=== PATIENT | male | born 1965 | race Caucasian/White ===

== ENCOUNTER 2018-08-12 04:53 | Emergency (ER) | payer SELFPAY ==
--- NOTE | 2018-08-12 05:16 | ER Document Report ---
ED General - General TRAVEL OUTSIDE OF THE [place] IN LAST 30 DAYS: No <BETTY TAYLOR - Last Filed: 08/12/18 07:06> <RAN VAZQUEZ - Last Filed: 08/12/18 09:13> - General Chief Complaint: Abdominal Pain Stated Complaint: POSS FOOD POISONING/BLOOD PRESSURE ISSUES Time Seen by Provider: 08/12/18 05:07 Notes: Patient is a 52-year-old male that comes emergency department for chief co mplaint of pains in his upper abdomen in the middle and right upper abdomen that started around 1030 tonight, he states that he also had tingling sensations in his left arm, between the 2 he became concerned and came in for evaluation. He denies nausea, vomiting, difficulty breathing, fever/chills. He states that symptoms started shortly after he was eating at [facility] tonight. Past medical history includes type 2 diabetes, hypertension, hyperlipidemia. He denies smoking, recreational drugs, history of CO or CAD. (BETTY TAYLOR) - Related Data Allergies/Adverse Reactions: No Known Allergies Allergy (Unverified 08/12/18 04:58) Past Medical History - Social History Smoking Status: Unknown if Ever Smoked Family History: Reviewed & Not Pertinent <RAN VAZQUEZ - Last Filed: 08/12/18 09:13> - Vital signs Vitals: Temp Pulse Resp BP Pulse Ox 97.6 F 73 17 189/110 H 94 08/12/18 05:01 08/12/18 05:01 08/12/18 05:01 08/12/18 05:01 08/12/18 05:01 Course - Laboratory Result Diagrams: 08/12/18 05:37 08/12/18 05:37 <BETTY TAYLOR - Last Filed: 08/12/18 07:06> - Laboratory Result Diagrams: 08/12/18 05:37 08/12/18 05:37 <RAN VAZQUEZ - Last Filed: 08/12/18 09:13> - Re-evaluation Re-evalutation: Chest x-ray is unremarkable. EKG with no acute findings, patient asymptomatic on my initial evaluation. He is hypertensive but is otherwise well-appearing. He identifies his pain as specifically epigastric, he does have some epigastric tenderness along with some right upper quadrant tenderness which is minimal, however his examination does not show guarding or severe tenderness. He appears comfortable. No tachycardia, fever, hypotension. CBC does show some mild leukocytosis with elevation of neutrophils but no bandemia. Chemistry unremarkable except for mild hyperglycemia with no acidosis. Lipase is normal. Ultrasound was performed because of the patient's symptoms beginning with eating and because of the painful location, this was normal. Initial troponin is negative. Discussed with patient. On reevaluation patient states that he again felt the upper abdominal discomfort between my evaluations. He did not have nausea or vomiting, did not have chest pain. Because of his left arm tingling that occurred earlier, along with the epigastric pain, risk factors of age, hypertension, diabetes, I recommended a delta troponin despite his atypical symptoms. Also him giving patient Pepcid and Carafate for suspected upper gastrointestinal tract source of the symptoms. Patient states agreement of this plan, he requests to leave afterwards however if the delta troponin is normal. (BETTY TAYLOR) 08/12/18 09:11 Patient with no elevation in repeat troponin. Patient denies any chest pain symptoms at this time. Patient is hypertensive at this time, although has not taken his normal daily medication for blood pressure management today. Good return precautions discussed. The patient has epigastric pain that is not suggestive of pulmonary embolus, cardiac ischemia, aortic dissection, or other serious etiology. Given the extremely low risk of these diagnoses for the test in evaluation for these possibilities does not appear to be indicated at this time. Patient has been instructed to return if the symptoms worsen or change in any way. (RAN VAZQUEZ) - Vital Signs Vital signs: Temp Pulse Resp BP Pulse Ox 97.6 F 73 20 175/95 H 94 08/12/18 05:01 08/12/18 05:01 08/12/18 07:36 08/12/18 07:36 08/12/18 07:36 - Laboratory Laboratory results interpreted by me: 08/12/18 08/12/18 05:37 05:37 WBC 14.2 H RDW 15.0 H Absolute Neutrophils 9.9 H Sodium 136.5 L Glucose 171 H - EKG Interpretation by Me Additional EKG results interpreted by me: EKG shows sinus rhythm at a rate of 73, no T wave inversions or ST segment changes in consecutive leads. OK interval of 184, QTC of 401. There is PAC noted. Left axis deviation noted. (BETTY TAYLOR) Discharge <BRANDONBETTY - Last Filed: 08/12/18 07:06> <RAN VAZQUEZ - Last Filed: 08/12/18 09:13> - Discharge Clinical Impression: Epigastric pain, Paresthesia of left arm Condition: Stable Disposition: HOME, SELF-CARE Additional Instructions: Your ultrasound, chest x-ray, EKG, and laboratory workup did not show any specific concerning findings. I suspect the cause of your upper abdominal pain is inflammation of the upper gastrointestinal tract (gastritis/esophagitis). I recommend the accident Carafate medications as prescribed along with the nausea medication if needed, you can take additional Rolaids, Tums, Maalox, etc. if needed. You can take Tylenol for pain. Avoid NSAIDs, alcohol, smoking, caffeine, spicy food. Start with clear fluids, progress to bland diet. Your blood pressure was high here in the emergency department tonight, follow-up with your primary care for additional monitoring and management of this. Follow-up with primary care for additional evaluation and treatment including possible H. pylori testing. Return if you worsen including vomiting, vomiting blood, black stools, severe pain, chest pain, difficulty breathing, passing out, fever for 100.4 or greater, or any other concerning or worsening symptoms. Prescriptions: Famotidine [Pepcid 20 mg Tablet] 20 mg PO BID #20 tablet Ondansetron [Zofran Odt 4 mg Tablet] 1 - 2 tab PO Q4H PRN #15 tab.rapdis PRN Reason: For Nausea/Vomiting Sucralfate [Carafate 1 gm Tablet] 1 gm PO QID #20 tablet Forms: Return to Work
--- NOTE | 2018-08-12 05:40 | RADIOLOGY REPORT (SQ) ---
EXAM DESCRIPTION: XR CHEST 1 VIEW COMPLETED DATE/TME: 08/12/2018 05:14 CLINICAL HISTORY: 52 years, Male, upper abd pain, left arm tingling Comparison: None FINDINGS: No focal lung consolidation. No pleural effusion. No pneumothorax. Cardiac and mediastinal silhouette is unremarkable. No acute osseous abnormality. Soft tissues are unremarkable. IMPRESSION: No acute findings. No focal lung consolidation.
[2018-08-12 05:52] LABS: ABSOLUTE BASOPHILS # (AUTO) 0.1 10^3/uL (0.0-0.2); ABSOLUTE EOSINOPHILS # (AUTO) 0.2 10^3/uL (0.0-0.6); ABSOLUTE MONOCYTES (AUTO) 0.9 10^3/uL (0.1-1.4); ABSOLUTE NEUT (AUTO) 9.9 10^3/uL (1.7-8.2); BASOPHILS % (AUTO) 0.9 % (0-2); EOSINOPHILS % (AUTO) 1.7 % (0-6); HEMATOCRIT 40.8 % (37.9-51.0); HEMOGLOBIN 13.9 g/dL (13.5-17.0); LYMPHOCYTES % (AUTO) 21.2 % (13-45); MEAN CORPUSCULAR HEMOGLOBIN 28.2 pg (27.0-33.4); MEAN CORPUSCULAR VOLUME 83 fl (80-97); MONOCYTES % (AUTO) 6.5 % (3-13); PLATELET COUNT 268 10^3/uL (150-450); RED BLOOD COUNT 4.91 10^6/uL (4.35-5.55); SEGMENTED NEUTROPHILS % (AUTO) 69.7 % (42-78); TOTAL CELLS COUNTED % (AUTO) 100 %; WHITE BLOOD COUNT 14.2 10^3/uL (4.0-10.5)
[2018-08-12 06:22] LABS: ALANINE AMINOTRANSFERASE 27 U/L (21-72); ALBUMIN 4.1 g/dL (3.5-5.0); ALKALINE PHOSPHATASE 68 U/L (38-126); ANION GAP 11 (5-19); ASPARTATE AMINO TRANSFERASE 21 U/L (17-59); BILIRUBIN,DIRECT 0.3 mg/dL (0.0-0.4); BILIRUBIN,TOTAL 0.7 mg/dL (0.2-1.3); BLOOD UREA NITROGEN 20 mg/dL (7-20); CALCIUM 10.1 mg/dL (8.4-10.2); CARBON DIOXIDE 27 mmol/L (22-30); CHLORIDE 99 mmol/L (98-107); GLUCOSE 171 mg/dL (75-110); LIPASE 200.6 U/L (23-300); POTASSIUM 4.3 mmol/L (3.6-5.0); SODIUM 136.5 mmol/L (137-145); TOTAL PROTEIN 6.8 g/dL (6.3-8.2)
--- NOTE | 2018-08-12 06:22 | RADIOLOGY REPORT (SQ) ---
EXAM DESCRIPTION: US ABDOMEN LIMITED COMPLETED DATE/TME: 08/12/2018 05:14 CLINICAL HISTORY: 52 years, Male, RUQ and epigastric pain TECHNIQUE: Grayscale and Doppler sonogram of the right upper quadrant abdomen. COMPARISON: None. FINDINGS: Pancreas: Not well visualized due to bowel gas. Aorta: Visualized portion is unremarkable. IVC: Visualized portion is unremarkable. Liver: Diffuse coarse increased echotexture most commonly associated with hepatic steatosis. The liver is also mildly enlarged measuring 20 cm longitudinally. No focal abnormalities. Main portal vein: Normal hepatopetal flow. Gallbladder: No gallstones. No gallbladder wall thickening. Common bile duct: 0.2 cm. Right kidney: 12.2 cm. No hydronephrosis. No nephrolithiasis. IMPRESSION: No acute sonographic abnormality.
[2018-08-12] MEDS ORDERED: FAMOTIDINE 20 MG TABLET PO ONE (06:55)
[2018-08-12] MEDS ORDERED: ONDANSETRON 4 MG TAB.RAPDIS PO ONE (06:55)
[2018-08-12] MEDS ORDERED: SUCRALFATE 1 GM TABLET PO ONE (06:55)
[2018-08-12 09:43] VITALS: BP 186/87
--- NOTE | 2018-08-12 17:05 | EKG REPORT ---
SEVERITY:- ABNORMAL ECG - SINUS RHYTHM ATRIAL PREMATURE COMPLEX LEFT VENTRICULAR HYPERTROPHY : Confirmed by: Doron Fuentes 12-Aug-2018 17:04:42
== END 2018-08-12 09:30 | disposition home or self-care (01) ==
LOC: ER 04:53
DX: R10.13 Epigastric pain (principal); R20.2 Paresthesia of skin; I49.1 Atrial premature depolarization; R10.11 Right upper quadrant pain; R10.811 Right upper quadrant abdominal tenderness; R10.816 Epigastric abdominal tenderness; I10 Essential (primary) hypertension; Z79.899 Other long term (current) drug therapy; D72.828 Other elevated white blood cell count; E11.65 Type 2 diabetes mellitus with hyperglycemia
CPT/HCPCS: 93005; 99284; 36415; 83690; 85025; 80053; 84484; 71045; 76705; 93010; S0119